=== PATIENT | female | born 1980 | race Caucasian/White ===

== ENCOUNTER → 2017-02-19 | Outpatient (CLI) | payer OTHER ==
[2017-02-19 20:04] LABS: ANA w/Reflex to Titer NEGATIVE (NEGATIVE)
[2017-02-22 03:47] LABS: Cardiolipin Ab IgG <9.0 GPL (<15); Cardiolipin Ab IgM 15.6 MPL (<12.5)
== END ==
LOC: LABWHC1 14:10
PROVIDERS: ATTEND Internal Medicine Rheumatology
DX: E66.09 Other obesity due to excess calories (principal); M79.7 Fibromyalgia; G25.81 Restless legs syndrome; K58.9 Irritable bowel syndrome, unspecified
CPT/HCPCS: 36415; 84443; 85613; 85730; 86038; 86147; 86160; 86225; 86235; 86850; 86880